=== PATIENT | female | born 1960 | race Asian ===

== ENCOUNTER 2020-04-24 05:21 | Emergency (ER) | payer OTHER ==
[2020-04-24] MEDS ORDERED: morphine CARPU-JECT 2 MG/1 ML DISP.SYRIN IVPUSH ONE (05:46)
[2020-04-24] MEDS ORDERED: SODIUM CHLORIDE 0.9% 500 ML INFUS.BAG IV ONE (05:46)
--- NOTE | 2020-04-24 05:52 | PDOC ---
History of Present Illness - General Chief Complaint: Pain, Acute Stated Complaint: ABD PAIN Time Seen by Provider: 04/24/20 05:35 Past History - Medical History Allergies/Adverse Reactions: Allergies Allergy/AdvReac Type Severity Reaction Status Date / Time No Known Drug Allergies Allergy Verified 04/24/20 05:34 Home Medications: Ambulatory Orders NK [No Known Home Medication] 04/24/20 Anemia: Yes Asthma: No Cancer: No Cardiac Disorders: No CVA: No COPD: No CHF: No Dementia: No Diabetes: No GI Disorders: No Disorders: No HTN: No Hypercholesterolemia: No Liver Disease: No Seizures: No Thyroid Disease: No - Surgical History Cholecystectomy: Yes - Psycho-Social/Smoking History Smoking Status: No Smoking History: Never smoked Have you smoked in the past 12 months: No Number of Cigarettes Smoked Daily: 0 Information on smoking cessation initiated: No - Substance Abuse Hx (Audit-C & DAST Scrn) How often the patient has a drink containing alcohol: Never Score: In Men: 4 or > Positive; In Women: 3 or > Positive: 0 Screen Result (Pos requires Nsg. Audit-10AR): Negative In the last yr the pt used illegal drug/Rx for NonMed reason: No Score: Yes response is considered Positive: 0 Screen Result (Positive result requires Nsg. DAST-10): Negative *Physical Exam - Vital Signs Last Vital Signs Temp Pulse Resp BP Pulse Ox 98.1 F 74 20 178/91 H 100 04/24/20 05:32 04/24/20 05:32 04/24/20 05:32 04/24/20 05:32 04/24/20 05:32 ED Treatment Course - LABORATORY CBC & Chemistry Diagram: 04/24/20 05:35 04/24/20 05:35 - RADIOLOGY Radiology Studies Ordered: Category Date Time Status SPIRAL- RENAL-STONE CT [CT] Stat CT Scan 04/24/20 05:46 Ordered Medical Decision Making - Medical Decision Making 04/24/20 05:47 HPI: 60yo F no PMH, s/p cholecystectomy for gallstones, presents from home c/o sudden onset intermittent colicky stabbing RUQ/R flank pain since 0100 today that woke her from sleep. Tried gas-x without improvement. Sitting/laying down makes worse. Deep breaths makes worse. Denies F/C, N/V, sick contacts, travel, hx DVT/PE, cough, SOB, CP, D/C, blood in stool, dysuria, hematuria, urinary urgency/frequency, vaginal bleeding, trauma, falls, hx similar sx, kidney issues, kidney stones. LMP 20 years ago. PCP - Laura ROS: Constitutional: Negative for chills, fever, fatigue, diaphoresis. HENT: Negative for sore throat, rhinorrhea, congestion. Eyes: Negative for visual disturbance. Respiratory: Negative for shortness of breath, cough. Cardiovascular: Negative for chest pain, palpitations, and leg swelling. Gastrointestinal: Positive for abdominal pain. Negative for blood in stool, constipation, diarrhea, nausea, and vomiting. Genitourinary: Positive for R flank pain. Negative for dysuria and hematuria. Musculoskeletal: Negative for myalgias, back pain, and neck pain. Skin: Negative for rash. Neurological: Negative for light-headedness, dizziness, vertigo, syncope, weakness, numbness and headaches. Psychiatric/Behavioral: Negative for behavioral problems and confusion. PE: Gen: Alert, NAD, uncomfortable-appearing, pacing room holding R flank HEENT: PERRL, EOMI, MMM, NCAT. No conjunctival pallor. Sclera are non-icteric. CV: Regular rate and rhythm. No murmurs, rubs, or gallops. PULM: No resp distress. CTAB, no wheezes, rales, or rhonchi. ABD: soft, ND, +TTP RUQ deep to ribcage and R flank, no rebound tenderness or g uarding, +R CVA tenderness. BACK: No TTP of c/t/l-spine. No step-offs or deformities. MSK: No bony deformities. 2+ pulses in all extremities. NEURO: AAOx3. PERRL. No gross CN deficits. Strength and sensation grossly intact throughout. Normal gait. EXTREMITIES: No cyanosis. No clubbing. No edema. PSYCH: Normal mood and thought pattern. SKIN: Warm and dry. Normal capillary refill. No rashes. No jaundice. MDM: 60yo F no PMH, s/p cholecystectomy for gallstones, presents from home c/o sudden onset intermittent colicky stabbing RUQ/R flank pain since 0100 today. Hypertensive, otherwise hemodynamically stable, afebrile, TTP R flank. Ddx: presentation concerning for kidney stone. Also consider UTI, infected stone, gallbladder pathology (cholelithiasis/cystitis, cholangitis). Lower concern for other emergent GI pathology due to location of pain and lack of F/C/N/V/D/C. Also consider atypical ACS/IA, PNA, infection, metabolic derangement, anemia. -EKG -CXR -CBC,CMP,Cardiac profile,Lipase,UA/UC -Spiral CT -IVF -Pain management -Dispo: pending workup and reassessment 04/24/20 06:09 EKG reviewed: normal sinus rhythm, 65bpm, normal axis, normal intervals, QTc 443ms, TWI in III, T wave flattening in aVF, no ST elevations or depressions, no significant changes from prior 09/29/13 04/24/20 06:19 Labs reviewed. 1+ blood in urine. No other concerning findings. 04/24/20 06:39 Pt states pain has resolved now. Comfortable-appearing. BP improved to 148/77 04/24/20 06:56 CTAP read on IOC: small solid lesion right hepatic lobe can be further evaluated nonemergent dynamic contrast-enhanced CT or MRI. No localizing signs for acute pathology. Signed out to day team []CXR and reassessment. Discharge - Discharge Information Problems reviewed: Yes Condition: Improved - Follow up/Referral - Patient Discharge Instructions Additional Instructions: You have been seen in the Emergency Department for your right sided pain. Your CT scan shows a small solid lesion in the right hepatic lobe. Follow-up with your primary care doctor within 1 week and make sure to inform him of this finding for further evaluation. If you experience pain, you can take Tylenol or Ibuprofen as directed on the medication bottle, but do not exceed 3g of Ibuprofen or 4g of Tylenol a day. Return to the Emergency Department immediately if you experience vomiting, fever, inability to urinate, or any other new or worsening symptom. - Post Discharge Activity
[2020-04-24 05:53] VITALS: BMI 29.1
[2020-04-24 05:54] LABS: BASO % 0.8 % (0-2.0); EOS % 3.6 % (0-4.5); HEMOGLOBIN 13.4 GM/dL (10.7-15.3); MCH 28.6 pg (25.7-33.7); MCHC 33.6 g/dl (32.0-36.0); MEAN CELL VOLUME 85.1 fl (80-96); MEAN PLT VOLUME 8.9 fl (7.5-11.1); MONO % 4.9 % (3.8-10.2); NEUT % 58.7 % (42.8-82.8); PLATELET COUNT 233 K/MM3 (134-434); RDW 14.3 % (11.6-15.6); WHITE BLOOD COUNT 9.6 K/mm3 (4.0-10.0)
--- OUTSIDE RECORDS SUMMARY | 2020-04-24 06:15 | XMS ---
:1960 Author Organization [facility] Support Name Relationship Address Phone [facility] Unavailable [address] [place] [address] LILLIAN ERVIN [address] [place] [address] Re-disclosure Warning The records that you are about to access may contain information from federally- assisted alcohol or drug abuse programs. If such information is present, then the following federally mandated warning applies: This information has been disclosed to you from records protected by federal confidentiality rules (42 CFR part 2). The federal rules prohibit you from making any further disclosure of this information unless further disclosure is expressly permitted by the written consent of the person to whom it pertains or as otherwise permitted by 42 CFR part 2. A general authorization for the release of medical or other information is NOT sufficient for this purpose. The Federal rules restrict any use of the information to criminally investigate or prosecute any alcohol or drug abuse patient.The records that you are about to access may contain highly sensitive health information, the redisclosure of which is protected by Article 27-F of the [facility] Public Health law. If you continue you may haveaccess to information: Regarding HIV / AIDS; Provided by facilities licensed or operated by the [facility] Office of Mental Health; or Provided by the [facility] Office for People With Developmental Disabilities. If such information is present, then the following [facility] mandated warning applies: This information has been disclosed to you from confidential records which are protected by state law. State law prohibits you from making any further disclosure of this information without the specific written consent of the person to whom it pertains, or as otherwise permitted by law. Any unauthorized further disclosure in violation of state law may result in a fine or [place] health care facility sentence or both. A general authorization for the release of medical or other information is NOT sufficient authorization for further disclosure. Insurance Providers Payer name Policy type Policy ID Covered Covered libertarian's Policy P sylwia / Coverage libertarian ID relationship to [place] [employer] ormation type [place] [employer] [id number] SP [id number] [facility]
[2020-04-24 06:17] LABS: EPI CELLS 11 /uL (0-25.1); HYALINE CASTS 0 /uL (0-3.1); PH,URINE 5.5 (5.0-8.0); URINE APPEARANCE CLEAR; URINE BACTERIA 23 /uL (0-1359); URINE BILIRUBIN NEGATIVE (NEGATIVE); URINE COLOR YELLOW; URINE GLUCOSE (UA) NEGATIVE (NEGATIVE); URINE KETONE NEGATIVE (NEGATIVE); URINE LEUK ESTERASE TRACE (NEGATIVE); URINE NITRITE NEGATIVE (NEGATIVE); URINE PROTEIN NEGATIVE (NEGATIVE); URINE RBC 8 /uL (0-23.9); URINE UROBILINOGEN 0.2 mg/dL (0.2-1.0); URINE WBC 18 /uL (0-25.8)
[2020-04-24 06:18] LABS: ALK PHOS 110 U/L (45-117); ANION GAP 6 MMOL/L (8-16); BILIRUBIN,TOTAL 0.3 mg/dL (0.2-1); BLOOD UREA NITROGEN 18.5 mg/dL (7-18); CALCIUM 8.9 mg/dL (8.5-10.1); CHLORIDE 109 mmol/L (98-107); CO2 25 mmol/L (21-32); CREATININE 0.8 mg/dL (0.55-1.3); GLUCOSE,RANDOM 107 mg/dL (74-106); LIPASE 174 U/L (73-393); POTASSIUM 4.3 mmol/L (3.5-5.1); SGOT/AST 11 U/L (15-37); SGPT/ALT 27 U/L (13-61); SODIUM 141 mmol/L (136-145); TOT PROT 7.4 g/dl (6.4-8.2)
--- NOTE | 2020-04-24 06:34 | PDOC ---
Attending Attestation - Resident Resident Name: GinaaudiMonaJaylin - ED Attending Attestation I have performed the following: I have examined & evaluated the patient, The case was reviewed & discussed with the resident, I agree w/resident's findings & plan, Exceptions are as noted - HPI HPI: 04/24/20 06:30 60 yo F h/o cholecystectomy p/w acute onset R flank pain this evening, intermittent, worse with lying down, not improved with gasex. Patient states shes never has this pain before. Denies dysuria and hematuria. Denies n/v/d. Denies cough, CP and SOB. No other complaints. - Physicial Exam PE: 04/24/20 06:37 General: well appearing HEENT: NCAT, MMM Abdomen: obese limiting exam, soft, +epigastric ttp, no rebound, no guarding Back: no CVA tenderness - Medical Decision Making 04/24/20 06:32 60 yo F with R flank pain, concerning for kidney stones vs. UTI vs. gastritis. Less likely lower lobe PNA as patient without cough or SOB and no fevers. Also doubt retained stone. Plan: -labs -urine -CT a/p non-con -pain control as needed -pepcid -IVF -reassess This clinical encounter is taking place during a federal and state health care emergency attributable to the novel [place] Virus pandemic. The [employer] of the Department of Health and Human Services has declared, pursuant to the Public Health Service Act 319F-3 (42 U.S.C. 247d-6d), that a covered persons activities related to medical countermeasures against COVID-19 will be immune from liability under Federal and State law. 04/24/20 06:38 Pt. signed out to incoming day team. Discharge - Discharge Information Problems reviewed: Yes Clinical Impression/Diagnosis: Abdominal pain Condition: Improved - Follow up/Referral - Patient Discharge Instructions Patient Printed Discharge Instructions: DI for Abdominal Pain-Adult Additional Instructions: You have been seen in the Emergency Department for your right sided pain. Your CT scan shows a small solid lesion in the right hepatic lobe. Follow-up with your primary care doctor within 1 week and make sure to inform him of this finding for further evaluation. If you experience pain, you can take Tylenol or Ibuprofen as directed on the medication bottle, but do not exceed 3g of Ibuprofen or 4g of Tylenol a day. Return to the Emergency Department immediately if you experience vomiting, fever, inability to urinate, or any other new or worsening symptom. - Post Discharge Activity
[2020-04-24] MEDS ORDERED: FAMOTIDINE 20 MG/50 ML IVPB 20 MG/50 ML MG IVPB ONE ×2 (06:38)
[2020-04-24] MEDS ORDERED: KETOROLAC TROMETHAMINE 15 MG/ML VIAL IVPUSH ONE (07:22)
--- NOTE | 2020-04-24 07:26 | PDOC ---
*Physical Exam - Vital Signs Last Vital Signs Temp Pulse Resp BP Pulse Ox 98.2 F 62 18 148/77 100 04/24/20 06:41 04/24/20 06:41 04/24/20 06:41 04/24/20 06:41 04/24/20 06:41 - Physical Exam General Appearance: Yes: Nourished, Appropriately Dressed HEENT: positive: EOMI, KIRAN, Normal ENT Inspection, Normal Voice, Symmetrical, TMs Normal, Pharynx Normal Neck: positive: Trachea midline, Normal Thyroid Respiratory/Chest: positive: Lungs Clear, Normal Breath Sounds Cardiovascular: positive: Regular Rhythm, Regular Rate, S1, S2 Gastrointestinal/Abdominal: positive: Tender, Flat, Soft, Tenderness (RUQ ttp) Musculoskeletal: positive: Normal Inspection Extremity: positive: Normal Capillary Refill, Normal Inspection Integumentary: positive: Normal Color, Dry, Warm Neurologic: positive: facilities manager II-XII NML intact, Fully Oriented, Alert, Normal Mood/Affect, Normal Response, Motor Strength / ED Treatment Course - LABORATORY CBC & Chemistry Diagram: 04/24/20 05:35 04/24/20 05:35 - ADDITIONAL ORDERS Additional order review: Laboratory Results 04/24/20 04/24/20 05:50 05:35 Sodium 141 Potassium 4.3 Chloride 109 H Carbon Dioxide 25 Anion Gap 6 L BUN 18.5 H Creatinine 0.8 Est GFR (CKD-EPI)AfAm 92.22 Est GFR (CKD-EPI)NonAf 79.57 Random Glucose 107 H Calcium 8.9 Total Bilirubin 0.3 AST 11 L ALT 27 Alkaline Phosphatase 110 Creatine Kinase 89 Troponin I < 0.02 Total Protein 7.4 Albumin 4.0 Lipase 174 Urine Color Yellow Urine Appearance Clear Urine pH 5.5 Ur Specific [place] 1.006 L Urine Protein Negative Urine Glucose (UA) Negative Urine Ketones Negative Urine Blood 1+ H Urine Nitrite Negative Urine Bilirubin Negative Urine Urobilinogen 0.2 Ur Leukocyte Esterase Trace Urine WBC (Auto) 18 Urine RBC (Auto) 8 Urine Casts (Auto) 0 U Epithel Cells (Auto) 11 Urine Bacteria (Auto) 23 04/24/20 05:35 RBC 4.70 MCV 85.1 MCHC 33.6 RDW 14.3 MPV 8.9 Neutrophils % 58.7 Lymphocytes % 32.0 Monocytes % 4.9 Eosinophils % 3.6 Basophils % 0.8 - Medications Given in the ED: ED Medications Discontinued Medications Generic Name Dose Route Start Last Admin Trade Name Yovani PRN Reason Stop Dose Admin Famotidine/Sodium Chloride 20 mg in 50 mls @ 100 mls/hr 04/24/20 06:38 04/24/20 06:41 Pepcid 20 Mg Premixed Ivpb - IVPB 04/24/20 07:07 100 mls/hr ONCE ONE Administration Morphine Sulfate 2 mg 04/24/20 05:46 04/24/20 05:59 Morphine Injection - IVPUSH 04/24/20 05:47 2 mg ONCE ONE Administration Sodium Chloride 1,000 ml 04/24/20 05:46 04/24/20 05:59 Normal Saline - IV 04/24/20 05:47 1,000 ml ONCE ONE Administration ED Progress Note - Progress Note Progress Note: 60 YOF s/p cholecystectomy presenting with RUQ pain since this am. Assumed care from night team. Patient has received CT, labs, pain control. CT negative. Labs wnl. Patient feeling better but not 100%. Medical Decision Making - Medical Decision Making Plan: - will give 15mg toradol and reassess - will DC if pain controlled - will CT chest/abdomen/pelvis w/ IV contrast Reassess - CT chest abdomen pelvis confirmed presence of lesion in liver consistent with hemangioma, additionally some vascular congestion - will dc patient to follow up 04/24/20 07:29 04/24/20 10:10 04/24/20 10:31 Discharge - Discharge Information Problems reviewed: Yes Clinical Impression/Diagnosis: Abdominal pain Condition: Improved - Admission No - Follow up/Referral - Patient Discharge Instructions Patient Printed Discharge Instructions: DI for Abdominal Pain-Adult Additional Instructions: You have been seen in the Emergency Department for your right sided pain. Your CT scan shows a small solid lesion in the right hepatic lobe. Follow-up with your primary care doctor within 1 week and make sure to inform him of this finding for further evaluation. If you experience pain, you can take Tylenol or Ibuprofen as directed on the medication bottle, but do not exceed 3g of Ibuprofen or 4g of Tylenol a day. Return to the Emergency Department immediately if you experience vomiting, fever, inability to urinate, or any other new or worsening symptom. - Post Discharge Activity
[2020-04-24] MEDS ORDERED: KETOROLAC TROMETHAMINE 15 MG/ML VIAL ONE (07:31)
--- NOTE | 2020-04-24 09:54 | EKG ---
Test Reason : Blood Pressure : / mmHG Vent. Rate : 065 BPM Atrial Rate : 065 BPM P-R Int : 152 ms QRS Dur : 072 ms QT Int : 426 ms P-R-T Axes : 049 019 025 degrees QTc Int : 443 ms NORMAL SINUS RHYTHM NORMAL ECG WHEN COMPARED WITH ECG OF 19-SEP-2013 10:49, NO SIGNIFICANT CHANGE WAS FOUND Confirmed by Jose Roberto Mott MD ([id number]) on 04/24/2020 9:53:20 AM Referred By: Confirmed By:Jose Roberto Mott MD
[2020-04-24 10:45] VITALS: BP 156/77; PULSE 55; TEMP 97.7
== END 2020-04-24 10:45 | disposition home or self-care (01) ==
LOC: JER 05:21
PROC: 3E033NZ Introduction of Analgesics, Hypnotics, Sedatives into Peripheral Vein, Percutaneous Approach (ICD-10-PCS; principal; 2020-04-24)
PROC: 3E033GC Introduction of Other Therapeutic Substance into Peripheral Vein, Percutaneous Approach (ICD-10-PCS; 2020-04-24)
DX: R10.9 Unspecified abdominal pain (principal)
CPT/HCPCS: 36415; 71045-TC-FY; 74176-TC; 74177-TC; 80053; 81003; 82550; 83690; 84484; 85025; 87086; 93005; 93010; 99285-25; Q9967

== ENCOUNTER 2021-06-24 05:25 | Day surgery (SDC) | payer OTHER ==
[2021-06-24 08:23] LABS: INR 1.01 (0.83-1.09); PROTHROMBIN TIME (PATIENT) 11.8 SEC (9.7-13.0)
[2021-06-24 08:26] LABS: ACTIVATED PTT 34.2 SECONDS (25.2-36.5)
[2021-06-24 14:58] VITALS: BP 123/57; PULSE 72; TEMP 97.1
== END 2021-06-24 14:45 | disposition home or self-care (01) ==
LOC: JASU-SURG 05:25
PROVIDERS: ATTEND Orthopaedic Surgery
PROC: 0LB80ZZ Excision of Left Hand Tendon, Open Approach (ICD-10-PCS; principal; 2021-06-24)
PROC: 0RQT0ZZ Repair Left Carpometacarpal Joint, Open Approach (ICD-10-PCS; 2021-06-24)
PROC: 0PTN0ZZ Resection of Left Carpal, Open Approach (ICD-10-PCS; 2021-06-24)
DX: M18.12 Unilateral primary osteoarthritis of first carpometacarpal joint, left hand (principal)
CPT/HCPCS: 36415; 76000-TC-FY; 85610; 85730; 88304-TC; 88311-TC; J1100

== ENCOUNTER 2024-06-16 17:52 | Emergency (ER) | payer OTHER ==
[2024-06-16 17:58] VITALS: BMI 28.1
[2024-06-16 19:34] LABS: EOS % 3.5 % (0-4.5); HEMOGLOBIN 13.8 GM/dL (10.7-15.3); LYMPH % 33.3 % (8-40); MCH 28.7 pg (25.7-33.7); MCHC 33.6 g/dl (32.0-36.0); MEAN CELL VOLUME 85.4 fl (80-96); MEAN PLT VOLUME 8.5 fl (7.5-11.1); MONO % 5.1 % (3.8-10.2); NEUT % 57.1 % (42.8-82.8); PLATELET COUNT 234 10^3/uL (134-434); RDW 14.3 % (11.6-15.6); WHITE BLOOD COUNT 7.5 K/mm3 (4.0-10.0)
[2024-06-16 19:35] VITALS: RESP 14
[2024-06-16 19:44] LABS: INR 0.94 (0.83-1.09); PROTHROMBIN TIME (PATIENT) 10.8 SEC (9.7-13.0)
[2024-06-16 19:46] LABS: ACTIVATED PTT 36.1 SECONDS (25.2-36.5)
[2024-06-16 19:50] LABS: POTASSIUM 3.9 mmol/L (3.5-5.1)
[2024-06-16 19:51] LABS: BLOOD UREA NITROGEN 17.2 mg/dL (7-18); CALCIUM 9.6 mg/dL (8.5-10.1)
[2024-06-16 19:55] LABS: CREATININE 0.9 mg/dL (0.55-1.3)
[2024-06-16 19:57] VITALS: BP 139/68; PULSE 60; TEMP 98.5
[2024-06-16 19:57] LABS: BILIRUBIN,TOTAL 0.3 mg/dL (0.2-1); TOT PROT 7.1 g/dl (6.4-8.2)
== END 2024-06-16 20:58 | disposition home or self-care (01) ==
LOC: JER 17:52
DX: R55 Syncope and collapse (principal); R00.2 Palpitations; R42 Dizziness and giddiness
CPT/HCPCS: 36415; 71045-TC-FY; 80053; 84484; 85025; 85610; 85730; 93005; 93010; 99285-25